=== PATIENT | female | born 1945 | race Caucasian/White ===

== ENCOUNTER 2019-03-19 17:08 | Emergency (ER) | payer MEDICARE, BC ==
[~2019-03-19 17:08] MED LIST: Iopamidol 300 61% 100 ML VIAL FS ONE
[2019-03-19] MEDS ORDERED: Clindamycin/D5W 900 mg/50 ml Premix Bag ONE (18:17)
[2019-03-19 18:35] LABS: #Basophils 0.1 thou/uL (0.0-0.2); #Eosinphils 0.2 thou/uL (0.0-0.7); #Monocytes 0.6 thou/uL (0.11-0.59); #Neutrophils 4.3 thou/uL (1.40-6.50); %Basophils 1.2 % (0.0-1.0); %Eosinophils 2.9 % (0.0-10.0); %Monocytes 9.6 % (0.0-10.0); %Neutrophils 70.3 % (42.0-75.0); Hemoglobin 12.7 g/dL (12.0-16.0); Mean Corpuscular Hemoglobin 27.5 pg (27.0-31.0); Mean Platelet Volume 6.3 fL (7.4-10.4); Platelet Count 228 thou/uL (130-400); RBC Distribution Width 15.7 % (11.5-14.5); Red Blood Cell (RBC) Count 4.62 mill/uL (4.20-5.40); White Blood Cell (WBC) Count 6.1 thou/uL (4.8-10.8)
[2019-03-19 18:43] LABS: INR-International Normal Ratio 0.9; PTT 26.9 SEC (22.9-36.1); Prothrombin Time 12.5 SEC (12.0-14.7)
[2019-03-19 18:51] LABS: Anion Gap 15 mmol/L (10-20); BUN (Urea Nitrogen) 13 mg/dL (9.8-20.1); CRP (Inflammatory) 1.24 mg/dL (= or < 0.5); Calc. Creatinine Clearance 0 mL/min (70-130); Calcium 9.6 mg/dL (7.8-10.44); Carbon Dioxide 27 mmol/L (23-31); Chloride 104 mmol/L (98-107); Estimated GFR-MDRD 72; Glucose 86 mg/dL (83-110); Potassium 3.8 mmol/L (3.5-5.1); Sodium 142 mmol/L (136-145)
--- NOTE | 2019-03-19 19:53 | ULT ---
EXAM: Right lower extremity venous duplex ultrasound with color and spectral Doppler imaging: HISTORY: Right lower extremity redness, pain, swelling, and edema COMPARISON: None FINDINGS: Exam performed from the groin to the ankle including the visualized greater saphenous, common femoral , superficial femoral, profunda femoral, popliteal, trifurcation, and posterior tibial veins. There is phasic flow with normal compressibility and normal augmentation at all examined levels. No evidence for intraluminal thrombus. IMPRESSION: No evidence for deep venous thrombosis.
--- NOTE | 2019-03-19 21:03 | CT ---
Right lower extremity CT with IV contrast: HISTORY: Pain and cellulitis Postcontrast CT examination of the right lower extremity is performed. 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 There is an area of some fatty re placement of the upper medial gastrocnemius muscle, of uncertain etiology but this has a remote or old appearance. No evidence for intramuscular abscess or abnormal fluid collection. There is some min imal nonspecific diffuse subcutaneous fat stranding in the lower extremities. No osseous abnormality. IMPRESSION: Unremarkable right lower extremity CT. No evidence for abscess. No evidence for myonecrosis or other significant acute process.
[2019-03-19] MEDS ORDERED: Morphine 4 MG/ML VIAL ONE (21:10)
== END 2019-03-19 21:30 | disposition home or self-care (01) ==
LOC: MERGE 17:08 → SCSER 17:08
DX: L03.115 Cellulitis of right lower limb (principal); E03.9 Hypothyroidism, unspecified; M10.9 Gout, unspecified
CPT/HCPCS: 80048; 83605; 85025; 85610; 85730; 86140; 96365; J2270; J3490; Q9967

== ENCOUNTER 2022-04-22 11:30 | Inpatient (IN) | payer MEDICARE, BC ==
[2022-04-23 11:58] VITALS: BMI 26.6
[2022-04-25] MEDS ORDERED: Thrombin 5000 UNITS/5 ML VIAL ONE (11:29)
[2022-04-25] MEDS ORDERED: fentaNYL Citrate/PF 100 MCG/2 ML SYRINGE ONE ×4 (11:34→16:39)
[2022-04-25] MEDS ORDERED: CEFAZOLIN 2 GM VIAL ONE (12:20)
[2022-04-25] MEDS ORDERED: Sodium Chloride 0.9% 100 ML ONE (12:20)
[2022-04-25] MEDS ORDERED: Ondansetron PF 4 MG/2 ML Vial ONE (12:36)
[2022-04-25] MEDS ORDERED: Lidocaine 1% PF 5 ML VIAL ONE (12:36)
[2022-04-25] MEDS ORDERED: Dexamethasone 20 MG/5 ML VIAL ONE (12:36)
[2022-04-25] MEDS ORDERED: Glycopyrrolate 0.2 MG/ML 5 ML SYRINGE ONE (12:36)
[2022-04-25] MEDS ORDERED: Rocuronium Bromide 10 MG/ML (10ML VIAL) ONE (12:36)
[2022-04-25] MEDS ORDERED: PROPOFOL 200 MG/20 ML VIAL ONE (12:36)
[2022-04-25] MEDS ORDERED: SUGAMMADEX SODIUM 200 MG/2 ML VIAL ONE (15:32)
[2022-04-25] MEDS ORDERED: Acetaminophen/Codeine 30-300mg Tablet PO PRN (16:04)
[2022-04-25] MEDS ORDERED: HYDROcodone/Acetaminophen 7.5/325 mg Tablet PO PRN (16:04)
[2022-04-25] MEDS ORDERED: HYDROcodone/Acetaminophen 10/325 mg Tablet PO PRN (16:04)
[2022-04-25] MEDS ORDERED: Morphine 2 MG/ML VIAL SLOW IVP PRN (16:04)
[2022-04-25] MEDS ORDERED: Cyclobenzaprine 10 MG TAB PO PRN (16:04)
[2022-04-25] MEDS ORDERED: Sodium Chloride 0.9% 1,000 ML IV SCH (16:15)
[2022-04-25] MEDS ORDERED: HYDROmorphone 0.5 MG/0.5 ML SYRINGE ONE ×2 (17:06→17:17)
[2022-04-25] MEDS ORDERED: Cyclobenzaprine 10 MG TAB ONE (17:30)
[2022-04-25] MEDS ORDERED: HYDROcodone/Acetaminophen 5/325 mg Tablet ONE (18:08)
== END 2022-04-25 19:30 | disposition home or self-care (01) | DRG 472 ==
LOC: SURG A 04-25 10:29 → EDSTATUS 04-25 11:30
PROVIDERS: ADMIT Neurological Surgery; ATTEND Neurological Surgery
PROC: 0RG20A0 Fusion of 2 or more Cervical Vertebral Joints with Interbody Fusion Device, Anterior Approach, Anterior Column, Open Approach (ICD-10-PCS; principal; 2022-04-25)
PROC: 0RB30ZZ Excision of Cervical Vertebral Disc, Open Approach (ICD-10-PCS; 2022-04-25)
PROC: 01N10ZZ Release Cervical Nerve, Open Approach (ICD-10-PCS; 2022-04-25)
PROC: 00NW0ZZ Release Cervical Spinal Cord, Open Approach (ICD-10-PCS; 2022-04-25)
DX: M50.121 Cervical disc disorder at C4-C5 level with radiculopathy (principal); M50.021 Cervical disc disorder at C4-C5 level with myelopathy; Z20.822 Contact with and (suspected) exposure to COVID-19; M48.02 Spinal stenosis, cervical region; M19.90 Unspecified osteoarthritis, unspecified site; J45.909 Unspecified asthma, uncomplicated; G89.29 Other chronic pain; I10 Essential (primary) hypertension; M10.9 Gout, unspecified; G43.909 Migraine, unspecified, not intractable, without status migrainosus; Z96.651 Presence of right artificial knee joint; M46.1 Sacroiliitis, not elsewhere classified; M70.62 Trochanteric bursitis, left hip; M70.61 Trochanteric bursitis, right hip; Z98.51 Tubal ligation status; Z79.899 Other long term (current) drug therapy; Z79.890 Hormone replacement therapy
CPT/HCPCS: 76000; C1713; J0690; J1100; J1170; J2405; J2704; J3370; J3490

== ENCOUNTER 2022-06-28 12:29 | Outpatient (CLI) | payer MEDICARE, BC | END 2022-06-28 12:30 | disposition home or self-care (01) | LOC: TBSIIMAG 12:29 | PROVIDERS: ATTEND Neurological Surgery | DX: M47.812 Spondylosis without myelopathy or radiculopathy, cervical region (principal); Z98.1 Arthrodesis status; Z98.890 Other specified postprocedural states | CPT/HCPCS: 72040 ==